=== PATIENT | male | born 1950 | race Caucasian/White ===

== ENCOUNTER → 2023-07-17 | Outpatient (CLI) | payer OTHER, SELFPAY ==
--- NOTE | 2023-07-17 12:20 | RAD_ITS ---
STUDY: X-RAY CHEST REASON FOR EXAM: Male, 73 years old. Suspected asbestos exposure. TECHNIQUE: Frontal and lateral views of the chest on 3 images. COMPARISON: None. FINDINGS: Hyperinflation. Mild interstitial prominence, right greater than left. Scattered healed parenchymal granulomatous calcifications. There is no demonstrated pleural abnormality. Cardiomegaly with sternotomy wires. Normal mediastinum and antionette. Prominent central pulmonary arteries. Aortic tortuosity. Diffuse thoracic osteopenia with moderate spondylosis. Normal visualized ribs, clavicles, and shoulders. No abnormality of the visualized soft tissue structures of the upper abdomen.
== END | disposition home or self-care (01) ==
PROVIDERS: Referring Provider Chiropractor; Visit Provider Chiropractor
DX: I73.9 Peripheral vascular disease, unspecified (principal); J61 Pneumoconiosis due to asbestos and other mineral fibers; I51.9 Heart disease, unspecified; Z77.090 Contact with and (suspected) exposure to asbestos
CPT/HCPCS: 71046; 94060; 94726; 94729

== ENCOUNTER → 2023-07-22 | Outpatient (CLI) | payer OTHER, SELFPAY ==
--- NOTE | 2023-07-22 12:15 | ART_ITS ---
Reason For Study: PAD Procedure A bilateral lower extremity continuous wave Doppler with analog waveform analysis and ankle brachial indexes. 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 Left Segmental Pressures Left brachial= 157mmHg. Left posterior tibial artery = 139mmHg. Left dorsalis pedis artery = 138mmHg. The left posterior tibial artery waveforms are biphasic. The left dorsalis pedis waveforms are biphasic. Left digit = 80 mmHg. Right Segmental Pressures Right brachial= 162mmHg. Right posterior tibial artery = 119mmHg. Right dorsalis pedis artery = 145mmHg. The right posterior tibial artery waveforms are biphasic. The right dorsalis pedis waveforms are monophasic. Indices The right ankle brachial index by the dorsalis pedis is .9. The right ankle brachial index by the posterior tibial artery is .73. The left ankle brachial index by the posterior tibial artery is .86. The left ankle brachial index by the dorsalis pedis is .85. The left digital-brachial index is .49. VL/Ankle Brachial Index Interpretation Summary Right NIRALI 0.9, mild arterial insufficiency. Doppler/PVR waveforms of the right ankle mildly diminished Left NIRALI 0.86, moderate arterial insufficiency. Doppler/PVR waveforms of the le ft ankle moderately diminished. Ordering Physician: Ruel Melendez Referring Physician: Ruel Melendez DO Performed By: Bobo Rosado RVT
--- NOTE | 2023-07-22 12:15 | ECHOD_ITS ---
Reason For Study: HEART DISEASE, UNSPECIFIED (I51.9) Procedure This was a 2D Doppler, Color Flow transthoracic echocardiogram. Exam performed in department. Left Ventricle Normal LV size. Mild concentric left ventricular hypertrophy. The left ventricular ejection fraction is 65 %. Diastolic function indeterminant. Increased filling pressures. Right Ventricle Normal RV size. Atria There is severe biatrial dilatation. Mitral Valve Moderate mitral annular calcification. Trivial mitral valve insufficiency. Tricuspid Valve Normal tricuspid valve. Aortic Valve Trisinus/trileaflet aortic valve. Pulmonic Valve Mild (1+) pulmonic valve insufficiency. Great Vessels Mildly dilated aortic root. Pericardium/Pleural No pericardial effusion. MMode/2D Measurements & Calculations LVIDd: 5.5 cm IVSd: 1.3 cm Ao root diam: 3.9 cm LVIDs: 3.8 cm LVPWd: 1.3 cm RVDd: 4.4 cm FS: 30.4 % LAV(MOD-bp): 65.6 ml LVAd ap4: 37.0 cm2 LVAd ap2: 28.8 cm2 LAV(MOD-bp) Indexed: 27.2 ml/m2 LVLd ap4: 10.1 cm LVLd ap2: 10.1 cm LAV(MOD-sp2): 67.8 ml EDV(MOD-sp4): 113.2 ml EDV(MOD-sp2): 68.2 ml LAV(MOD-sp4): 64.6 ml EDV(sp4-el): 114.8 ml EDV(sp2-el): 69.6 ml LVAs ap4: 18.4 cm2 LVAs ap2: 14.8 cm2 LVLs ap4: 7.7 cm LVLs ap2: 7.5 cm ESV(MOD-sp4): 38.8 ml ESV(MOD-sp2): 25.3 ml ESV(sp4-el): 37.6 ml ESV(sp2-el): 24.7 ml EF(MOD-sp4): 65.7 % EF(MOD-sp2): 62.8 % EF(sp4-el): 67.3 % SV(MOD-sp4): 74.3 ml SV(MOD-sp2): 42.8 ml SV(sp4-el): 77.2 ml LA dimension(2D): 4.8 cm LA A4 area: 20.5 cm2 RA A4 area: 20.5 cm2 TAPSE: 2.1 cm Time Measurements MV dec time: 0.21 sec Doppler Measurements & Calculations MV E max avel: 79.7 cm/sec Lat Peak E' Avel: 3.1 cm/sec Med Peak E' Avel: 3.5 cm/sec MV A max avel: 96.4 cm/sec E/E' lat: 26.1 E/E' med: 23.0 MV E/A: 0.83 MV V2 max: 104.1 cm/sec MV P1/2t max avel: 109.2 cm/sec Ao V2 max: 150.2 cm/sec MV max P.3 mmHg MV P1/2t: 67.1 msec Ao max P.1 mmHg MV V2 mean: 57.5 cm/sec MV dec slope: 476.5 cm/sec2 Ao V2 mean: 95.4 cm/sec MV mean P.5 mmHg Ao mean P.3 mmHg MV V2 VTI: 40.4 cm MVA(P1/2t): 3.3 cm2 Ao V2 VTI: 34.2 cm AV (velocity ratio): 0.75 AI max avel: 363.0 cm/sec LV V1 max: 106.6 cm/sec PA V2 max: 84.7 cm/sec AI max P.7 mmHg LV V1 max P.6 mmHg PA V2 mean: 56.3 cm/sec AI dec slope: 147.2 cm/sec2 LV V1 mean P.3 mmHg AI P1/2t: 722.5 msec LV V1 mean: 70.8 cm/sec LV V1 VTI: 25.6 cm ECHO/Echo Complete Interpretation Summary Mild concentric left ventricular hypertrophy. The left ventricular ejection fraction is 65 %. Diastolic function indeterminant. Increased filling pressures. There is severe biatrial dilatation. Moderate mitral annular calcification. Mild (1+) pulmonic valve insufficiency. Mildly dilated aortic root. Ordering Physician: Ruel Melendez Referring Physician: OTD Performed By: Daxa Guajardo RDCS, RVT
== END | disposition home or self-care (01) ==
LOC: CVS 12:14
PROVIDERS: Referring Provider Chiropractor; Visit Provider Chiropractor
DX: I73.9 Peripheral vascular disease, unspecified (principal); I51.9 Heart disease, unspecified; Z77.090 Contact with and (suspected) exposure to asbestos
CPT/HCPCS: 93306; 93922